=== PATIENT | male | born 1990 | race African-American/Black ===

== ENCOUNTER 2016-11-22 16:44 | Emergency (ER) | payer SELFPAY ==
[~2016-11-22] VITALS: Ht 177.8 cm; Wt 68.0 kg
[2016-11-22] MEDS ORDERED: fentaNYL PF VIAL 100 MCG/2 ML VIAL IV ONE (17:15)
[2016-11-22] MEDS ORDERED: IV NORMAL SALINE 1000ML BAG 1,000 ML IV ONE (17:15)
[2016-11-22] MEDS ORDERED: ONDANSETRON PF 4 MG/2 ML VIAL. IV ONE (17:15)
[2016-11-22 17:39] LABS: BILIRUBIN,URINE NEGATIVE (NEG); GLUCOSE,URINE NEGATIVE (NEG); NITRITE,URINE NEGATIVE (NEG); PROTEIN,URINE NEGATIVE (NEG-TRACE); UROBILINOGEN,URINE 0.2 mg/dL (0.2 mg/dL)
[2016-11-22 17:52] LABS: CALCIUM 8.9 mg/dL (8.5-10.1); GFR 91.8; POTASSIUM 3.8 mmol/L (3.5-5.1)
--- NOTE | 2016-11-22 17:52 | ED.ADGEN ---
Past Medical History Past Medical History: Asthma Additional Information: HOOKAH Alcohol Use: Occasionally Drug Use: None Adult General Chief Complaint Chief Complaint: PELVIC PAIN HPI HPI Patient is a 26 year old AA male presents with left groin swelling for one week with left groin pain starting several hours prior to ED arrival. Patient points to small mass in the inguinal region and this tender swollen. Pain is rated 10 a tenderness worse with palpation and movement. Patient denies vomiting, constipation or in ability to pass gas. Denies testicular pain, swelling, dysuria or penile discharge. No other acute symptoms or complaints. Review of Systems Review of Systems ROS as per HPI. Current Medications Current Medications Current Medications Medications (Trade) Dose Ordered Sig/Ismael Start Time Stop Time Status Last Admin Dose Admin Doxycycline Hyclate (Vibra-Tab) 100 mg 1X ONCE 11/22/16 19:45 11/22/16 19:46 DC 11/22/16 19:46 100 MG Fentanyl Citrate (Fentanyl 2ml Vial) 50 mcg 1X ONCE 11/22/16 17:15 11/22/16 17:20 DC 11/22/16 17:39 50 MCG Ibuprofen (Motrin) 600 mg 1X ONCE 11/22/16 19:45 11/22/16 19:46 DC 11/22/16 19:46 600 MG Iohexol (Omnipaque 300 Mg/ml) 75 ml 1X ONCE 11/22/16 18:00 11/22/16 18:01 DC 11/22/16 18:00 75 ML Morphine Sulfate 4 mg STK-MED ONCE 11/22/16 19:15 11/22/16 19:16 DC Ondansetron HCl (Zofran) 4 mg 1X ONCE 11/22/16 17:15 11/22/16 17:20 DC 11/22/16 17:38 4 MG Sodium Chloride 1,000 ml @ 1,000 mls/hr 1X ONCE 11/22/16 17:15 11/22/16 18:14 DC 11/22/16 17:38 1,000 MLS/HR Allergies Allergies Allergies Coded Allergies Type Severity Reaction Last Updated Verified No Known Drug Allergies 11/22/16 No Physical Exam Physical Exam Constitutional: Well developed, well nourished, no acute distress, non-toxic appearance. HENT: Normocephalic, atraumatic, bilateral external ears normal, oropharynx moist, no oral exudates, nose normal. Eyes: PERRLA, EOMI, conjunctiva normal, no discharge. Neck: Normal range of motion, no tenderness, supple, no stridor. Cardiovascular:Heart rate regular rhythm, no murmur Lungs & Thorax: Bilateral breath sounds clear to auscultation Abdomen: Soft, nontender. : Scrotum, testicles nontender, cremasteric reflexes intact, penis, no discharge, left inguinal region, soft tissue mass with tenderness consistent with an incarcerated inguinal hernia. Back: No tenderness. Extremities: No tenderness. Neurologic: Alert and oriented X 3, normal motor function, normal sensory function, no focal deficits noted. Psychologic: Affect normal, judgement normal, mood normal. Current Patient Data Vital Signs Vital Signs Date Time Temp Pulse Resp B/P (MAP) Pulse Ox O2 Delivery O2 Flow Rate FiO2 11/22/16 19:49 70 130/65 (86) 98 Room Air 11/22/16 19:17 16 11/22/16 16:52 98.5 98.5 Lab Values Laboratory Tests Test 11/22/16 17:30 White Blood Count 7.1 x10^3/uL (4.0-11.0) Red Blood Count 5.28 x10^6/uL (4.30-5.70) Hemoglobin 16.7 g/dL (13.0-17.5) Hematocrit 49.2 % (39.0-53.0) Mean Corpuscular Volume 93 fL (79-100) Mean Corpuscular Hemoglobin 32 pg (25-35) Mean Corpuscular Hemoglobin Concent 34 g/dL (31-37) Red Cell Distribution Width 13.2 % (11.5-14.5) Platelet Count 168 x10^3/uL (140-400) Neutrophils (%) (Auto) 30 % (31-73) L Lymphocytes (%) (Auto) 56 % (24-48) H Monocytes (%) (Auto) 12 % (0-9) H Eosinophils (%) (Auto) 1 % (0-3) Basophils (%) (Auto) 1 % (0-3) Neutrophils # (Auto) 2.2 x10^3uL (1.8-7.7) Lymphocytes # (Auto) 4.0 x10^3/uL (1.0-4.8) Monocytes # (Auto) 0.8 x10^3/uL (0.0-1.1) Eosinophils # (Auto) 0.1 x10^3/uL (0.0-0.7) Basophils # (Auto) 0.0 x10^3/uL (0.0-0.2) Segmented Neutrophils % 28 % (35-66) L Band Neutrophils % 5 % (0-9) Lymphocytes % 28 % (24-48) Atypical Lymphocytes % (Manual) 23 % (0-0) H Monocytes % 12 % (0-10) H Eosinophils % 2 % (0-5) Basophils % 2 % (0-3) Platelet Estimate Adequate (ADEQUATE) Urine Collection Type Unknown Urine Color Yellow Urine Clarity Clear Urine pH 6.0 Urine Specific [place] 1.020 Urine Protein Negative mg/dL (NEG-TRACE) Urine Glucose (UA) Negative mg/dL (NEG) Urine Ketones (Stick) Negative mg/dL (NEG) Urine Blood Negative (NEG) Urine Nitrite Negative (NEG) Urine Bilirubin Negative (NEG) Urine Urobilinogen Dipstick 0.2 mg/dL (0.2 mg/dL) Urine Leukocyte Esterase Negative (NEG) Urine RBC 0 /HPF (0-2) Urine WBC 1-4 /HPF (0-4) Urine Squamous Epithelial Cells Few /LPF Urine Bacteria 0 /HPF (0-FEW) Urine Mucus Mod /LPF Sodium Level 141 mmol/L (136-145) Potassium Level 3.8 mmol/L (3.5-5.1) Chloride Level 105 mmol/L (98-107) Carbon Dioxide Level 28 mmol/L (21-32) Anion Gap 8 (6-14) Blood Urea Nitrogen 10 mg/dL (8-26) Creatinine 1.0 mg/dL (0.7-1.3) Estimated GFR (Cockcroft-Gault) 91.8 BUN/Creatinine Ratio 10 (6-20) Glucose Level 79 mg/dL (70-99) Lactic Acid Level 1.5 mmol/L (0.4-2.0) Calcium Level 8.9 mg/dL (8.5-10.1) Total Bilirubin 0.5 mg/dL (0.2-1.0) Aspartate Amino Transferase (AST) 28 U/L (15-37) Alanine Aminotransferase (ALT) 26 U/L (16-63) Alkaline Phosphatase 87 U/L (46-116) C-Reactive Protein, Quantitative 5.8 mg/L (0-3.3) H Total Protein 7.5 g/dL (6.4-8.2) Albumin 3.5 g/dL (3.4-5.0) Albumin/Globulin Ratio 0.9 (1.0-1.7) L Laboratory Tests 11/22/16 17:30 Laboratory Tests 11/22/16 17:30 EKG EKG [] Radiology/Procedures Radiology/Procedures [CT abdomen pelvis: Left inguinal reactive lymph nodes without evidence of inguinal hernia or incarceration's per radiology report.] Course & Med Decision Making Course & Med Decision Making Pertinent Labs and Imaging studies reviewed. (See chart for details) [No evidence of inguinal hernia. Patient provided empiric treatment for possible STI. Recommend supportive care with PCP/[facility] follow -up. Return precautions reviewed.] Dragon Disclaimer Dragon Disclaimer This electronic medical record was generated, in whole or in part, using a voice recognition dictation system. SRAVAN IRAHETA DO November 22, 2016 17:52
[2016-11-22 17:53] LABS: BASO % 1 % (0-3); EOS % 1 % (0-3); HEMATOCRIT 49.2 % (39.0-53.0); HEMOGLOBIN 16.7 g/dL (13.0-17.5); LYMPH % 56 % (24-48); MEAN CORPUSCULAR HEMOGLOBIN 32 pg (25-35); MEAN CORPUSCULAR HGB CONC 34 g/dL (31-37); MEAN CORPUSCULAR VOLUME 93 fL (79-100); MONO % 12 % (0-9); NEUT % 30 % (31-73); PLATELET COUNT 168 x10^3/uL (140-400); RED BLOOD COUNT 5.28 x10^6/uL (4.30-5.70); RED CELL DISTRIBUTION WIDTH 13.2 % (11.5-14.5); WHITE BLOOD COUNT 7.1 x10^3/uL (4.0-11.0)
[2016-11-22 17:57] LABS: ALBUMIN 3.5 g/dL (3.4-5.0); ALBUMIN/GLOBULIN RATIO 0.9 (1.0-1.7); C-REACTIVE PROTEIN 5.8 mg/L (0-3.3); TOTAL BILIRUBIN 0.5 mg/dL (0.2-1.0); TOTAL PROTEIN 7.5 g/dL (6.4-8.2)
[2016-11-22] MEDS ORDERED: IOHEXOL 300 MG/ML 75 ML VIAL IV ONE (18:00)
[2016-11-22 18:06] LABS: BACTERIA,URINE 0 /HPF (0-FEW); RBC,URINE 0 /HPF (0-2); SQUAMOUS EPITHELIAL CELL,UR FEW /LPF
[2016-11-22] MEDS ORDERED: MORPHINE SULFATE 4 MG/ML DISP.SYRIN. IV ONE (19:00)
[2016-11-22 19:04] LABS: % BASOS 2 % (0-3); % EOS 2 % (0-5); PLT ESTIMATE ADEQUATE (ADEQUATE)
[2016-11-22] MEDS ORDERED: MORPHINE SULFATE 4 MG/ML DISP.SYRIN. ONE (19:15)
--- NOTE | 2016-11-22 19:28 | RAD ---
PROCEDURE CT abdomen and pelvis with contrast. HISTORY Left inguinal hernia. Pain for months. Symptoms worsened in the last 4 days. TECHNIQUE Axial images and coronal and sagittal re-formatted images are provided. 75 milliliters of intravenous Omnipaque 300 was administered. One or more of the following individualized dose reduction techniques were utilized for this exam: 1. Automated exposure control. 2. Adjustment of the mA and/or kV according to patient's size. 3. Use of iterative reconstruction technique. COMPARISON None. FINDINGS The lung bases are clear. There is no pleural effusion. The heart is not enlarged. There is minimal fatty infiltration of the liver. Gallbladder is absent. Spleen is not enlarged. Pancreas and adrenals are unremarkable. Kidneys are symmetrically perfused. Aorta is normal caliber. Lack of oral contrast limits evaluation of bowel. There is no bowel obstruction or mural thickening. There are a few scattered diverticula in the colon. There are no findings of diverticulitis. Appendix is not definitely visualized, there are no secondary findings of an appendicitis. Bladder is unremarkable. Calcified phleboliths are noted. Prostate is not enlarged. Bony structures are intact. No inguinal hernia is apparent. Mildly prominent inguinal lymph nodes are noted on the left, nonspecific. Largest measures 3.1 x 1.8 centimeters. IMPRESSION - No acute abdominal findings. - Negative for inguinal hernia. - Mildly prominent left inguinal lymph nodes, nonspecific, may be reactive, clinical follow-up to resolution suggested. Electronically signed by: Angus Hill MD (November 22, 2016 19:26:54)
[2016-11-22] MEDS ORDERED: DOXYCYCLINE HYCLATE 100 MG TABLET PO ONE (19:45)
[2016-11-22] MEDS ORDERED: IBUPROFEN 600 MG TABLET. PO ONE (19:45)
[2016-11-22 19:49] VITALS: BP 130/65
== END 2016-11-22 19:55 | disposition home or self-care (01) ==
LOC: ER 16:44
DX: R10.30 Lower abdominal pain, unspecified (principal); R19.09 Other intra-abdominal and pelvic swelling, mass and lump; J45.909 Unspecified asthma, uncomplicated
CPT/HCPCS: 36415; 74177; 80053; 81001; 83605; 85007; 85027; 86140; 96361; 96374; 96375; 99285; J2270; J2405; J3010; J7030; Q9967

== ENCOUNTER 2017-06-03 16:47 | Emergency (ER) | payer SELFPAY ==
[~2017-06-03] VITALS: Ht 177.8 cm; Wt 72.6 kg
[2017-06-03 17:08] VITALS: BP 140/71
[2017-06-03] MEDS ORDERED: NAPR-683 PO (17:12)
--- NOTE | 2017-06-03 17:13 | PHYS DOC ---
Past Medical History Past Medical History: Asthma Alcohol Use: Occasionally Drug Use: None Adult General Chief Complaint Chief Complaint: DENTAL PROBLEM HPI HPI Patient is a 27 year old male presents to the emergency department with complaints of left lower dental pain off and on for several weeks. He reports no fever, no difficulty with swallowing or phonation. Review of Systems Review of Systems Constitutional: Denies fever or chills [] Eyes: Denies change in visual acuity, redness, or eye pain [] HENT: Denies nasal congestion or sore throat, complains of mouth pain [] Respiratory: Denies cough or shortness of breath [] Cardiovascular: No additional information not addressed in HPI [] GI: Denies abdominal pain, nausea, vomiting, bloody stools or diarrhea [] : Denies dysuria or hematuria [] Musculoskeletal: Denies back pain or joint pain [] Integument: Denies rash or skin lesions [] Neurologic: Denies headache, focal weakness or sensory changes [] Endocrine: Denies polyuria or polydipsia [] All other systems were reviewed and found to be within normal limits, except as documented in this note. Allergies Allergies Allergies Coded Allergies Type Severity Reaction Last Updated Verified No Known Drug Allergies 11/22/16 No Physical Exam Physical Exam Constitutional: Well developed, well nourished, no acute distress, non-toxic appearance. [] HENT: Normocephalic, atraumatic, bilateral external ears normal, oropharynx moist, no oral exudates, nose normal. Tooth #17 with partial abruption, surrounding gingiva without erythema. [] Eyes: PERRLA, EOMI, conjunctiva normal, no discharge. [] Neck: Normal range of motion, no tenderness, supple, no lymphadenopathy, no stridor. [] EKG EKG [] Radiology/Procedures Radiology/Procedures [] Course & Med Decision Making Course & Med Decision Making Pertinent Labs and Imaging studies reviewed. (See chart for details) [] Dragon Disclaimer Dragon Disclaimer This electronic medical record was generated, in whole or in part, using a voice recognition dictation system. Departure Departure Impression: Primary Impression: Odontalgia Disposition: 01 HOME, SELF-CARE Condition: STABLE Referrals: NO PCP (PCP) [facility] Patient Instructions: Dental Pain Scripts Naproxen (NAPROSYN) 500 Mg Tablet 500 MG PO BID Y for PAIN, #20 TAB Prov: MARY BETH ARCHER APRN 06/03/17 MARY BETH ARCHER APRN Jun 03, 2017 17:13
== END 2017-06-03 17:37 | disposition home or self-care (01) ==
LOC: ER 16:47
DX: K08.89 Other specified disorders of teeth and supporting structures (principal); J45.909 Unspecified asthma, uncomplicated
CPT/HCPCS: 99282; 99283